=== PATIENT | male | born 1950 | race Caucasian/White ===

== ENCOUNTER 2018-05-03 18:12 | Emergency (ER) | payer OTHER ==
[~2018-05-03] VITALS: Ht 170.2 cm; Wt 77.1 kg
[~2018-05-03 18:12] MED LIST: COLACE100 MG PO; PERCOCET 5/3251 TAB PO; ULTRAM50 MG PO
[2018-05-03] MEDS ORDERED: KETO10TA2 PO (20:13)
[2018-05-03] MEDS ORDERED: ORPHENADRINE C100 MG PO (20:13)
== END 2018-05-03 20:16 | disposition home or self-care (01) ==
LOC: ER 18:12
DX: S93.492A Sprain of other ligament of left ankle, initial encounter (principal); X50.3XXA Overexertion from repetitive movements, initial encounter; Y93.89 Activity, other specified; Y92.89 Other specified places as the place of occurrence of the external cause; Y99.8 Other external cause status